=== PATIENT | female | born 1950 | race Caucasian/White ===

== ENCOUNTER → 2020-11-29 04:04 | Outpatient (CLI) | payer MEDICARE, BC, SELFPAY ==
[2020-11-29 20:12] LABS: SARS-CoV-2 RNA PCR Negative
== END ==
PROVIDERS: PCP Family Medicine; Visit Provider Specialist
DX: U07.1 COVID-19 (principal)
CPT/HCPCS: C9803; U0003; U0005

== ENCOUNTER 2020-12-02 03:07 | Day surgery (SDC) | payer MEDICARE, BC, SELFPAY ==
[2020-11-29 18:56] VITALS: BMI 31.3
[2020-12-02] VITALS (24 sets, daily range): BP systolic 83–151; BP diastolic 44–89; PULSE 57–83; RESP 12–26; TEMP 35.7–36.5; O2SAT 95–100; BMI 31.2; BMI 32.2
[2020-12-02 07:31] LABS: Basophils Absolute Auto 0.1 K/mm3 (0.0-0.1); Basophils Percent Auto 1.3 % (0.2-1.2); Eosinophils Absolute Auto 0.2 K/mm3 (0-0.3); Eosinophils Percent Auto 2.8 % (0-4.4); Hematocrit 43.9 % (37.0-47.0); Hemoglobin 15.4 g/dL (12.0-15.0); Immature Granulocyte Absolute 0.01 K/mm3 (0.00-0.031); Immature Granulocyte Percent A 0.2 % (0-0.5); Lymphocytes Absolute Auto 2.24 K/mm3 (0.9-3.2); Mean Corpuscular HGB Conc 35.1 g/dl (32-36); Mean Corpuscular Hemoglobin 32.1 pg (26-34); Mean Corpuscular Volume 91.5 fl (80-100); Mean Platelet Volume 9.6 fl (7.4-10.4); Monocytes Absolute Auto 0.6 K/mm3 (0.1-0.6); Monocytes Percent Auto 10.7 % (2.6-8.5); Neutrophils Absolute Auto 2.3 K/mm3 (1.3-6.7); Platelet Count Result 256 k/mm3 (150-375); Red Cell Distribution Width 11.7 % (11.5-14.5); White Blood Count 5.3 K/mm3 (4.5-10.0)
[2020-12-02] MEDS: SODIUM CHLORIDE 0.9% IV 500 ML 100 ML IV CONT (07:40)
[2020-12-02 07:51] LABS: Anion Gap 11 mmol/L (8-16); Blood Urea Nitrogen 10 mg/dL (7-17); Calcium 9.4 mg/dL (8.4-10.2); Carbon Dioxide 23 mmol/L (22-30); Chloride 93 mmol/L (98-107); Estimated CRCL calculation 72 ml/min; Estimated Glomerular Filt Rate > 60; Glucose 100 mg/dL (65-110); Potassium 3.9 mmol/L (3.4-5.0); Sodium 127 mmol/L (137-145)
--- NOTE | 2020-12-02 09:17 | WPDMODSED ---
Moderate Sedation Note-Pt Data Patient Data Diagnosis: Coronary disease with previous bypass grafting Exertional symptoms compatible with angina Abnormal stress test Present Complaint: Exertional chest pain Procedure to be performed/Plan: Left heart catheterization with coronary angiography and bypass graft angiography Allergies Allergy/AdvReac Type Severity Reaction Status Date / Time latex Allergy Intermediate ITCHING Verified 11/29/20 18:22 FROM POWDER IN LATEX GLOVES morphine AdvReac Intermediate DISORIENTAT Verified 11/29/20 18:22 ED Home Medications Medication Instructions Recorded Confirmed Type aspirin 81 mg tablet,delayed 81 mg PO HS 02/16/19 11/29/20 History release calcium carbonate 500 mg (1,250 1 tablet PO BID 02/16/19 11/29/20 History mg)-vitamin D3 400 unit tablet carbamazepine 200 mg 200 mg PO Q12H 02/16/19 11/29/20 History capsule,extended release [id number] multivit with 1 tablet PO DAILY 02/16/19 11/29/20 History admkyjjd-dxcb-BN-lutein 8 mg iron-400 mcg-300 mcg tablet ibuprofen 800 mg tablet 800 mg PO TID PRN 09/05/19 11/29/20 History metoprolol succinate 50 mg 50 mg PO DAILY #90 tablet 02/02/20 11/29/20 Rx tablet,extended release 24 hr atorvastatin 40 mg PO HS 11/29/20 11/29/20 History beta carotene 25,000 unit PO DAILY 11/29/20 11/29/20 History diphenhydramine HCl [Benadryl 25 mg PO BID PRN 11/29/20 11/29/20 History Allergy] multivit,tx w/iron (hematinic) 1 tablet PO DAILY 11/29/20 11/29/20 History [Senior Vitamin-B Complex-C] nitroglycerin 0.4 mg SUBLINGUAL PRN PRN 11/29/20 11/29/20 History vitamin E 400 unit PO DAILY 11/29/20 11/29/20 History Current Medications: Active Medications Sodium Chloride (Normal Saline Iv) 500 mls @ 100 mls/hr IV CONT .Q5H HAILY Sedation/Anesthesia: No previous sedation/anesthesia problems (including family history). [facility] Past Medical History Medical History (Updated 09/10/20 @ 12:08 by Shai Shaikh MD) Abnormal fasting glucose BMI 30.0-30.9,adult BMI 31.0-31.9,adult Gastro-esophageal reflux disease without esophagitis Irritable bowel syndrome with diarrhea Pain of right thumb Spider bite wound Family History Family History (Updated 08/30/18 @ 13:47 by DOCTOR UNKNOWN) Mother Family history of thyroid disease, Onset Age: 78 Family history of malignant neoplasm Father Family history of Alzheimer's disease, Onset Age: 88 Malignant neoplasm of prostate Grandparent Family history of Alzheimer's disease, Onset Age: 90 Social History Social History Smoking status: Former smoker Alcohol intake: never Substance use: never Substance use type: does not use Living arrangements: with family Additional living arrangements comments: LIVES W/ [facility] Gender identity (if verbalized by the patient): Female Spiritual care concerns: No Mod Sed Physical Exam Physical Exam Pre Procedural Exam: Normal: Appearance, Neck, Throat, Airway, Lungs, Heart Size, Heart Rate, Heart Rhythm, Neuro Exam and Extremities Hours since solid foods: 12 Hours since liquid intake: 12 Mallampati Classification: class II Internal Medicine - PN: Obj Da Vital Signs Vital Signs: Vital Signs - 24 hr 12/02/20 07:29 Temperature 36.1 C L Pulse Rate 70 Respiratory Rate 17 Blood Pressure 141/89 H Pulse Oximetry 96 Meds/Results Medications: Active Medications Generic Name Dose Route Start Last Admin Trade Name Freq PRN Reason Stop Dose Admin Sodium Chloride 500 mls @ 100 mls/hr 12/02/20 07:00 Normal Saline Iv IV CONT .Q5H HAILY Labs CBC & Chem 7: 12/02/20 07:23 12/02/20 07:23 Labs: Laboratory Results - last 24 hr 12/02/20 12/02/20 07:23 07:23 WBC 5.3 RBC 4.80 Hgb 15.4 H Hct 43.9 MCV 91.5 MCH 32.1 MCHC 35.1 RDW 11.7 Plt Count 256 MPV 9.6 I
--- NOTE | 2020-12-02 10:47 | ECG_ITS ---
Measurements Intervals [place] Rate: 64 P: 33 [place]: 182 QRS: 17 QRSD: 78 T: 48 QT: 429 QTc: 446 Interpretive Statements SINUS RHYTHM EARLY PRECORDIAL R/S TRANSITION ST-T WAVE ABNORMALITY IN ANTERIOR LEADS- CONSIDER ISCHEMIA ABNORMAL ECG Electronically Signed On 12-02-2020 12:51:57 CDT by Jeff Laird D.O.
--- NOTE | 2020-12-02 10:54 | WPDCARDPROC ---
Cardiac Cath Procedure Note Date of procedure:: 12/02/20 Performing physician:: Hussain Loyola MD Indication:: exertional angina and abnormal nuclear stress previous CABG Brief clinical history:: this is a 70-year-old woman with coronary artery disease underwent bypass grafting in 2002. She presents to the office with exertional angina which has been rather chronic. An exercise Nuclear stress test was significantly abnormal with inferolateral ischemia. In this setting follow-up angiography has been recommended. Procedure Procedure performed:: Left ventriculography coronary angiography vein graft angiography internal mammary graft angiography PCI(JESSA) to RCA saphenous vein graft Sedation/Medication given:: fentanyl 50 mg Versed 2 mg case start time 9:39 a.m. case end time 10:40 a.m. sedation provided by Phi Sparks RN, trained observer Access site:: right femoral artery Estimated blood loss:: 20 cc Procedure note:: patient was brought to the laborer pipelines in the postabsorptive state the right femoral triangle was prepared and draped in the usual fashion. Anesthesia was provided with 1% lidocaine infiltrated locally. Using the modified Seldinger technique the femoral artery was punctured and a 5 [place] vascular sheath was placed. After this left heart catheterization was carried out using a 5 [place] angled pigtail catheter to measure left-sided hemodynamics and to inject LV g in the HOANG projection. After this I used a 5 [place] FL4 catheter to inject in engage the [place] left coronary artery I then used a 5 [place] JR4 catheter to engage and inject the right coronary artery. After this the JR4 catheter was used to inject the saphenous vein graft to the circumflex. The internal mammary graft was then engaged and injected using a BALJIT catheter. Lastly the saphenous vein graft to the right coronary was engaged and injected using a 5 [place] multipurpose A1 the cineangiograms were then reviewed and PCI of the RCA graft was recommended and carried out as detailed below. Prior to PCI the patient received aspirin 3-5 mg and 600 mg of clopidogrel. She was anticoagulated with intravenous bolus and infusion of Angiomax for this PCI. The patient had the 5 [place] sheath changed over a guidewire for a 6 [place] device. The procedure was well tolerated and uncomplicated she was taken to the holding area for recovery and sheath removal. Findings:: Hemodynamics: Central aortic pressure was 142/64 left ventricle 142/5 end-diastolic of 16 there is no significant gradient on pullback across the aortic valve. Left ventricle: The LV is normal in size the base of the inferior wall is hypodynamic the remainder of the LV contracts well the global ejection fraction I would visually estimated to be 60%. The left main coronary artery is medium in caliber in the distal aspect of the left main there is about 60% stenosis prior to the bifurcation into the LAD and circumflex. The left anterior descending is a moderate caliber artery with proximal stenosis and a long tubular fashion of about 70%. Distally competitive flow can be seen from the BALJIT catheter into the midportion of the LAD. Circumflex is a medium caliber artery giving rise to the marginal branches. The circumflex has high-grade disease in its proximal segment just after the origin off the left main. This stenosis appears to be eccentric but appears in at least 2 projections to be 90%. back filling of the remnant of the saphenous vein graft to the OM can be seen on antegrade injection in the circumflex there does not appear to be any competitive flow in the vessel. The right coronary artery is medium in caliber and dominant to the posterior circulation the right coronary artery is 100% occluded in its 3rd portion. Saphenous vein graft to the circumflex is 100% occluded at its proximal anastomosis saphenous vein graft to the right coronary artery is a large caliber segme
[2020-12-02] MEDS: NITROGLYCERIN SL 0.4 MG TABLET SUBLINGUAL (11:23)
[2020-12-02] MEDS: SODIUM CHLORIDE 0.9% IV 1,000 ML 125 ML IV CONT (11:45)
--- NOTE | 2020-12-02 12:05 | SUR.PHASEII ---
Pt complained of chest pressure radiating to neck and throat on return from [facility] lab support tech. Dr Loyola aware. Given SL Nitroglycerin 0.4mg x1 with relief to a pain level of 1. BP dropped to 80/44 after recieving Nitro SL. IVF infusing. Pt voided x1 per bedpan - large amount clear light yellow urine.
--- NOTE | 2020-12-02 17:25 | SUR.PHASEII ---
Angiomax finished at 1340. Pt voiding per bedpan without difficulty. Sheath pulled with manual pressure at 1642. Manual pressure completed at 1712. Site remains clean dry and intact without signs of bleeding or hematoma.
--- NOTE | 2020-12-02 18:12 | SUR.PHASEII ---
END PHASE II RECOVERY. ADMIT TO EXTENDED RECOVERY AFTER OUTPATIENT PROCEDURE (C W/ PCI) TO CHIEF CUSTOMER OFFICER 5 (REMAINS IN CHIEF CUSTOMER OFFICER 5) AT THIS TIME UNTIL MOVED TO IMU 206 TO COMPLETE EXTENDED RECOVERY STAY. SEE PCS FOR FURTHER DOCUMENTATION.
--- NOTE | 2020-12-02 18:13 | ADMGEN ---
This patient, Kristina Walker, was admitted to EXTENDED RECOVERY POST OUTPATIENT PROCEDURE ([facility] W/ PCI) AT 1813. REMAINS IN ONLINE ACTIVIST 5 UNTIL MOVED TO IMU Room 206-. Patient/family oriented to hospital policies and general routines including ID bracelet, bed and alarms, visiting hours, pain management, procedures, bathroom and other care routines, personal items, smoking policy, room service/diet, and visiting hours. Information on how to activate the Rapid Response Team has been discussed. Patient/Family are encouraged to report perceived risks to care and to ask questions if they do not understand what they are told or what they should do. DENIES CP OR SOB. BEDREST X 6 HOURS UNTIL 2312 POST HEMOSTASIS OF R. GROIN PUNCTURE SITE.
--- NOTE | 2020-12-02 19:40 | PC.NURSE ---
REPORT CALLED TO GRACE MONTESINOS IN IMU. QUESTIONS ANSWERED. PT. IS TO TRANSFER TO IMU 206.1 VIA BED FOR COMPLETION OF EXTENDED RECOVERY AFTER C W/ PCI STAY.
--- NOTE | 2020-12-02 19:50 | PC.NURSE ---
TRANSFERRED VIA BED WITH ALL PERSONAL BELONGINGS ON TELE MONITOR TO IMU 206.1 FROM [facility] FOR EXTENDED RECOVERY STAY. UPDATES GIVEN TO GRACE MONTESINOS AT BEDSIDE. OBSERVED R. GROIN SITE WITH GRACE MONTESINOS. IVF'S CONTINUE AT 125ML/HR. NO NEW CHANGES NOTED. PT. VOICES NO C/O. NO DISTRESS NOTED.
--- NOTE | 2020-12-02 20:31 | ADMGEN ---
This patient, Kristina Walker, was admitted to IMU Room 206-01 at 2009 from the Chest pain center. Patient/family oriented to hospital policies and general routines including ID bracelet, bed and alarms, visiting hours, pain management, procedures, bathroom and other care routines, personal items, smoking policy, room service/diet, and visiting hours. Information on how to activate the Rapid Response Team has been discussed. Patient/Family are encouraged to report perceived risks to care and to ask questions if they do not understand what they are told or what they should do.
--- NOTE | 2020-12-02 20:33 | PC.NURSE ---
SARAH faxed to IMU department. Report called by YAMEL Lisa at 1940. Report given by telephone. All questions answered and plan of care reviewed. Patient to go to IMU room 206-1.
--- NOTE | 2020-12-02 20:36 | PC.NURSE ---
This patient was transferred to the IMU department room 206-1 at 2009 from the Chest pain center. Patient brought by bed. Patient oriented to room.
[2020-12-03] VITALS (11 sets, daily range): BP systolic 136–158; BP diastolic 56–66; PULSE 77–90; RESP 14–18; TEMP 36.3–37.1; O2SAT 95–98
[2020-12-03] MEDS: SODIUM CHLORIDE 0.9% IV 500 ML 100 ML IV CONT (00:40)
--- NOTE | 2020-12-03 05:11 | ECG_ITS ---
Measurements Intervals [place] Rate: 88 P: 27 MD: 168 QRS: 3 QRSD: 78 T: 27 QT: 347 QTc: 422 Interpretive Statements SINUS RHYTHM EARLY PRECORDIAL R/S TRANSITION BORDERLINE ST-T WAVE ABNORMALITY- ANTEROLAT/INF LEADS BORDERLINE ECG Electronically Signed On 12-03-2020 7:46:53 CDT by Jeff Laird D.O.
[2020-12-03] MEDS: CLOPIDOGREL BISULFATE 75 MG TABLET PO (09:38)
[2020-12-03] MEDS: ATORVASTATIN 40 MG TABLET 80 MG PO (09:38)
[2020-12-03] MEDS: ASPIRIN 81 MG CHEWABLE TABLET PO (09:38)
--- NOTE | 2020-12-03 13:09 | PM.DS ---
DS: Admitting Diagnosis Admitting Diagnosis CAD, unstable angina, abnormal stress test DS: Discharge Diagnosis Discharge Diagnosis (1) CAD (coronary artery disease): Code(s): I25.10 - Atherosclerotic heart disease of [place] coronary artery without angina pectoris Status: Acute DS: Summary Hospital Course Hospital Course: 70-year-old female who had an outpatient catheterization because of an abnormal stress test and angina. She was found to have high-grade stenosis of a vein graft to the RCA. This was successfully stented by Dr. Loyola. She also had circumflex disease which will be treated medically initially. She stated hospital overnight had no groin pain, chest pain, syncope, presyncope or other worrisome symptoms. Time Spent with Patient Time attestation: Total time spent providing and/or coordinating discharge services: Greater than 30 minutes were spent with the patient performing examination discussing discharge instructions and plan and documentation Exam Narrative: Appears stated age Const: General: no acute distress HENMT: General nose exam: Normal nares present Eyes: General: appearance normal, both eyes and all related structures Neck: Neck: supple and no JVD Resp: Auscultation: clear to auscultation bilaterally Cardio: Rate: regular rate Rhythm: regular rhythm GI: GI Palp: Yes Soft to palpation and Yes Firmness to palpation present (GI) Skin: General skin exam: normal color Other: Right groin is free of hematoma ecchymosis or bruit Neuro: General: gait normal Extrem: General: normal to inspection and no edema Psych: Mental Status: mental status grossly normal DS: Data Data Completed and Pending Completed studies during hospitalization: 1. Severe 3 vessel coronary artery disease as described above with moderate distal left main stenosis, high-grade proximal LAD lesion and high-grade proximal to ostial circumflex disease. The right coronary artery is chronically occluded. 2. Patent BALJIT graft to the LAD 3. occluded saphenous vein graft to the circumflex 4. patent but highly diseased saphenous vein graft to the RCA with sequential 95% lesions in the mid shaft of this graft resulting in TRI 2 flow in the vessel. 5. Inferobasal hypokinesia overall normal left ventricular systolic function 6. somewhat challenging but angiographically successful PCI of the saphenous vein graft to the RCA. The graft was significantly calcified but was pre-dilated and stented and then post dilated with high-pressure balloon as described above. 7. Patient will be followed clinically if she continues to have symptoms compatible with angina higher risk PCI of the distal left main into the ostium of the circumflex may be considered in another setting Procedures/Treatments: 1. Severe 3 vessel coronary artery disease as described above with moderate distal left main stenosis, high-grade proximal LAD lesion and high-grade proximal to ostial circumflex disease. The right coronary artery is chronically occluded. 2. Patent BALJIT graft to the LAD 3. occluded saphenous vein graft to the circumflex 4. patent but highly diseased saphenous vein graft to the RCA with sequential 95% lesions in the mid shaft of this graft resulting in TRI 2 flow in the vessel. 5. Inferobasal hypokinesia overall normal left ventricular systolic function 6. somewhat challenging but angiographically successful PCI of the saphenous vein graft to the RCA. The graft was significantly calcified but was pre-dilated and stented and then post dilated with high-pressure balloon as described above. 7. Patient will be followed clinically if she continues to have symptoms compatible with angina higher risk PCI of the distal left main into the ostium of the circumflex may be considered in another setting Discharge Plan Discharge Patient Disposition: Home, Self-Care Discharge Instructions: No lifting o
== END 2020-12-03 15:36 | disposition home or self-care (01) ==
LOC: ANHCATHLAB 06:59 → ANHIMU 18:52
PROVIDERS: PCP Family Medicine; Visit Provider Specialist
PROC: 4A023N7 Measurement of Cardiac Sampling and Pressure, Left Heart, Percutaneous Approach (ICD-10-PCS; CPT 93459; principal; 2020-12-02 08:30)
PROC: (CPT 92973; 2020-12-02 08:30)
PROC: (CPT 92937; 2020-12-02 08:30)
DX: I25.118 Atherosclerotic heart disease of native coronary artery with other forms of angina pectoris (principal); I65.21 Occlusion and stenosis of right carotid artery; Z95.1 Presence of aortocoronary bypass graft; R93.1 Abnormal findings on diagnostic imaging of heart and coronary circulation; I10 Essential (primary) hypertension; E78.5 Hyperlipidemia, unspecified; R56.9 Unspecified convulsions; Z79.82 Long term (current) use of aspirin; Z87.891 Personal history of nicotine dependence
CPT/HCPCS: 36415; 80048; 85025; 92973; 93005; 93459; A9270; C1725; C1757; C1769; C1874; C1887; C1894; C9604; J0461; J0583; J1644; J2250; J3010; J7030; J7040

== ENCOUNTER 2021-01-03 10:06 | Outpatient (CLI) | payer MEDICARE, BC, SELFPAY ==
[2021-01-03 10:47] LABS: Hematocrit 41.7 % (37.0-47.0); Hemoglobin 14.6 g/dL (12.0-15.0); Mean Corpuscular Hemoglobin 32.7 pg (26-34); Mean Corpuscular Volume 93.3 fl (80-100); Mean Platelet Volume 9.6 fl (7.4-10.4); Platelet Count Result 249 k/mm3 (150-375); Red Blood Count 4.47 M/mm3 (4.2-5.4); Red Cell Distribution Width 12.2 % (11.5-14.5); White Blood Count 5.5 K/mm3 (4.5-10.0)
[2021-01-03 10:50] LABS: Add Urine Microscopic? NO; Appearance Urine Clear (Clear); Bilirubin Urine Negative (Negative); Blood Urine Negative (Negative); Color Urine Yellow (Yellow); Glucose Urine UA Negative (Negative); Ketones Urine Negative (Negative); Leukocyte Esterase Ur Negative LEU/UL (NEGATIVE); Nitrate Urine Negative (Negative); Protein Urine Negative (Negative); Specific Grav Ur 1.006 (1.001-1.035); Urobilinogen Urine Negative mg/dL (<2.0)
[2021-01-03 10:58] LABS: Hemoglobin A1C 5.2 % (<5.7)
[2021-01-03 11:06] LABS: Anion Gap 12 mmol/L (8-16); Blood Urea Nitrogen 7 mg/dL (7-17); Calcium 9.5 mg/dL (8.4-10.2); Carbon Dioxide 27 mmol/L (22-30); Chloride 94 mmol/L (98-107); Cholesterol 141 mg/dL (0-200); Estimated Glomerular Filt Rate > 60; Glucose 97 mg/dL (65-110); HDL Direct 72 mg/dL; Potassium 4.1 mmol/L (3.4-5.0); Sodium 133 mmol/L (137-145); Triglycerides 99 mg/dL (<150)
[2021-01-03 11:08] LABS: Creatinine Urine 32.6 mg/dL
[2021-01-03 11:16] LABS: LDL Cholesterol Direct 51 mg/dL
[2021-01-03 12:29] LABS: Microalbumin Urine Random < 6.0 mg/L (0-16.7)
== END 2021-01-03 10:07 | disposition home or self-care (01) ==
PROVIDERS: PCP Family Medicine; Visit Provider Internal Medicine Interventional Cardiology
DX: I25.10 Atherosclerotic heart disease of native coronary artery without angina pectoris (principal); E11.65 Type 2 diabetes mellitus with hyperglycemia; E78.5 Hyperlipidemia, unspecified; I10 Essential (primary) hypertension; R53.83 Other fatigue; Z79.4 Long term (current) use of insulin; G56.03 Carpal tunnel syndrome, bilateral upper limbs
CPT/HCPCS: 36415; 80048; 80061; 81003; 82043; 83036; 84443; 85027

== ENCOUNTER 2021-06-09 15:00 | Outpatient (RCR) | payer MEDICARE, BC, SELFPAY ==
[2021-02-25 12:11] VITALS: PULSE 70
--- NOTE | 2021-03-21 10:05 | PCCPR ---
Absent due to out of town Kristina out of town 03/11/21
--- NOTE | 2021-03-21 10:06 | PCCPR ---
Absent due to cataract surgery Kristina is having cataract surgery 03/24 not ceratin her return day.
== END 2021-06-09 17:56 | disposition home or self-care (01) ==
LOC: ANHCPREHAB 15:00
PROVIDERS: PCP Family Medicine; Visit Provider Internal Medicine Cardiovascular Disease
DX: Z95.5 Presence of coronary angioplasty implant and graft (principal)
CPT/HCPCS: 93798

== ENCOUNTER 2023-07-20 19:03 | Emergency (ER) | payer MEDICARE, BC, SELFPAY ==
--- NOTE | ~2023-07-20 | XR_ITS ---
XR chest 2V 07/20/2023 19:39 Indication: Chest pain Procedure: 2 view chest Comparison: No prior studies for comparison. Findings: Shallow inspiration with crowding of the pulmonary vessels. Status post median sternotomy f or CABG. No focal air space disease, pulmonary edema, pleural effusion or suspected pneumothorax. Impression: 1: No acute cardiopulmonary disease. Reviewed, dictated and finalized at location A. Impression: 1: No acute cardiopulmonary disease.
--- NOTE | 2023-07-20 19:12 | ECG_ITS ---
Measurements Intervals [place] Rate: 89 P: -8 SD: 143 QRS: 10 QRSD: 81 T: 31 QT: 349 AVG RR 672 QTc: 395 QTcB 425 QTcF 398 Interpretive Statements SINUS RHYTHM SEPTAL MYOCARDIAL INFARCT, OF INDETERMINATE AGE[40+ms Q WAVE IN V1/V2] NONSPECIFIC ST WAVE ABNORMALITY ABNORMAL ECG SEE SCANNED COPY FOR SIGNATURE MTDD
[2023-07-20 19:13] VITALS: BP 180/83; PULSE 91; RESP 16; TEMP 36.4; O2SAT 100
[2023-07-20 19:29] LABS: Basophils Absolute Auto 0.1 K/mm3 (0.0-0.1); Basophils Percent Auto 0.9 % (0.2-1.2); Eosinophils Absolute Auto 0.2 K/mm3 (0-0.3); Eosinophils Percent Auto 2.2 % (0-4.4); Hematocrit 35.6 % (37.0-47.0); Hemoglobin 11.4 g/dL (12.0-15.0); Immature Granulocyte Absolute 0.02 K/mm3 (0.00-0.031); Immature Granulocyte Percent A 0.3 % (0-0.5); Lymphocytes Absolute Auto 2.43 K/mm3 (0.9-3.2); Lymphocytes Percent Auto 30.9 % (18.3-44.2); Mean Corpuscular Hemoglobin 27.2 pg (26-34); Mean Platelet Volume 10.8 fl (7.4-10.4); Monocytes Absolute Auto 0.8 K/mm3 (0.1-0.6); Monocytes Percent Auto 10.4 % (2.6-8.5); Neutrophils Absolute Auto 4.4 K/mm3 (1.3-6.7); Neutrophils Percent Auto 55.3 % (45.5-73.1); Platelet Count Result 254 k/mm3 (150-375); Red Blood Count 4.19 M/mm3 (4.2-5.4); White Blood Count 7.9 K/mm3 (4.5-10.0)
[2023-07-20 19:39] LABS: Alanine Aminotransferase 32 U/L (6-35); Albumin Level 4.4 g/dL (3.5-5.1); Alkaline Phosphatase 99 U/L (38-126); Anion Gap 8 mmol/L (4-12); Aspartate Amino Transferase 35 U/L (14-36); Bilirubin,Total 0.3 mg/dL (0.2-1.3); Blood Urea Nitrogen 15 mg/dL (7-17); Carbon Dioxide 24 mmol/L (22-30); Chloride 104 mmol/L (98-107); Estimated CRCL calculation 71 ml/min; Estimated Glomerular Filt Rate > 60; Glucose 101 mg/dL (65-110); Lipase 96 U/L (23-300); Potassium 3.7 mmol/L (3.4-5.0); Sodium 136 mmol/L (137-145)
[2023-07-20 19:41] LABS: Prothrombin Time 13.2 Seconds (11.1-14.7)
[2023-07-20 19:42] LABS: Partial Thromboplastin Time 31.3 Seconds (22.3-36.8)
[2023-07-20 20:00] LABS: Troponin I 0.116 ng/mL (0.000-0.034)
--- NOTE | 2023-07-20 20:31 | ED.CHESTPAIN ---
HPI - Chest Pain General Chief Complaint: Chest Pain Stated Complaint: Chest Pressure Time Seen by Provider: 07/20/23 19:18 History of Present Illness HPI narrative: patient presents with chest pressure that started this afternoon, she had a stent placed yesterday. No shortness of breath, no nausea vomiting, pain does not radiate. Related Data Home Medications Medication Instructions Recorded Confirmed aspirin 81 mg tablet,delayed 81 mg PO HS 02/16/19 05/14/23 release (Adult Aspirin Regimen) calcium carbonate 500 mg-vitamin 1 tablet PO BID 02/16/19 05/14/23 D3 10 mcg (400 unit) tablet (Calcium 500 With D) [id number]-bsxd 8 mg-folic 400 1 tablet PO DAILY 02/16/19 05/14/23 mcg-K 50 mcg-lutein 300 mcg tablet (Centrum Silver Women) beta carotene 7,500 mcg (25,000 25,000 unit PO DAILY 11/29/20 05/14/23 unit) capsule diphenhydramine HCl 25 mg tablet 25 mg PO BID PRN Allergy Symptoms 11/29/20 05/14/23 (Benadryl Allergy) B-complex with vitamin C 1 tablet PO DAILY 12/18/21 05/14/23 acetaminophen 650 mg 650 mg PO Q12H 12/18/21 05/14/23 tablet,extended release (Arthritis Pain Relief (acetaminophen) ER) metoprolol succinate 25 mg 25 mg PO DAILY 03/27/22 05/14/23 tablet,extended release 24 hr atorvastatin 40 mg tablet 40 mg PO HS 04/21/22 05/14/23 losartan 25 mg tablet 25 mg PO . q.a.m. 04/21/22 05/14/23 Allergies Allergy/AdvReac Type Severity Reaction Status Date / Time latex Allergy Intermediate ITCHING Verified 05/14/23 11:13 FROM POWDER IN LATEX GLOVES morphine AdvReac Intermediate DISORIENTAT Verified 05/14/23 11:13 ED Review of Systems Review of Systems: CONST: No fever. HEENT: No sore throat C/V: chest pressure RESP: No cough GI: No abdominal pain : No dysuria. M/S: No joint pain. SKIN: No rash. NEURO: [No headache or focal numbness or weakness] PSYCH: [No depression] PMFSH Past Medical History Medical History (Updated 07/20/23 @ 20:26 by Arlyn Hart MD) Abnormal fasting glucose Glucose 107 with hemoglobin A1c 5.4 on 10/09/2021. fasting glucose 101 with hemoglobin A1c 5.4 on 11/03/2022. At moderate risk for fall (~2021) Bilateral cataracts Treated surgically 2022. BMI 30.0-30.9,adult BMI 31.0-31.9,adult BMI 32.0-32.9,adult Chronic pain of right hip (~2020) Gastro-esophageal reflux disease without esophagitis History of blood transfusion History of bruising easily History of stress test History of wrist fracture Left Wrist 1963 Horseback riding fall Right wrist 1979 Roller skating accident Hypertension Irritable bowel syndrome with diarrhea Obesity (BMI 30.0-34.9) Pain of right thumb Seizure disorder tapered off of Tegretol May,. Seizures Spider bite wound Surgical History Surgical History History of appendectomy (~12/2001) History of back surgery (~2006) Fusion of 2nd vertebrae (Dr. Justin) History of coronary artery stent placement 1 stent 12/05/2020 (Dr. Loyola) 3 stents 01/06/2021 (Dr. Beckham) History of dental surgery wisdom teeth removed accident History of tonsillectomy (~1957) S/P triple vessel bypass (~11/12/02) Dr. Loyola Family History Family History Mother Family history of malignant neoplasm Family history of thyroid disease, Onset Age: 78 Hypertension Father Malignant neoplasm of prostate Family history of Alzheimer's disease, Onset Age: 88 Coronary artery disease Diabetes mellitus Grandparent Family history of Alzheimer's disease, Onset Age: 90 Social History Social History Smoking packs per day: 0.5 Smoking cigarettes per day: 10.0 Years smoked: 5 Smoking pack-years: 2.50 Smoking status: Former smoker Tobacco type: cigarettes Alcohol intake: never [facility]
[2023-07-20 20:56] VITALS: BP 154/80; PULSE 88; RESP 17; O2SAT 99
[2023-07-20 22:29] LABS: Troponin I 0.107 ng/mL (0.000-0.034)
--- NOTE | 2023-07-20 22:39 | ECG_ITS ---
Measurements Intervals [place] Rate: 80 P: -3 NE: 148 QRS: 4 QRSD: 76 T: 24 QT: 355 AVG RR 742 QTc: 391 QTcB 412 QTcF 392 Interpretive Statements SINUS RHYTHM SEPTAL MYOCARDIAL INFARCT, OF INDETERMINATE AGE[40+ms Q WAVE IN V1/V2] NONSPECIFIC ST WAVE ABNORMALITY ABNORMAL ECG SEE SCANNED COPY FOR SIGNATURE MTDD
[2023-07-20 23:27] VITALS: PULSE 89
[2023-07-20 23:28] VITALS: BP 168/72; PULSE 84; RESP 17; O2SAT 99
[2023-07-21] VITALS (47 sets, daily range): BP systolic 103–179; BP diastolic 60–74; PULSE 73–103; RESP 10–36; O2SAT 94–99
[2023-07-21 01:58] LABS: Troponin I 0.095 ng/mL (0.000-0.034)
--- NOTE | 2023-07-21 02:15 | PC.NURSE ---
[facility] transfer center called for status of pt bed. [facility] rep stated they believed it would be at least until morning .
--- NOTE | 2023-07-21 09:21 | PC.NURSE ---
[facility] transfer center called for updated vitals. No bed available.
--- NOTE | 2023-07-21 10:04 | PM.CNCAR ---
Assessment and Plan Assessment and plan (1) NSTEMI (non-ST elevated myocardial infarction): Code(s): I21.4 - Non-ST elevation (NSTEMI) myocardial infarction Status: Acute (2) CAD (coronary artery disease): Code(s): I25.10 - Atherosclerotic heart disease of [place] coronary artery without angina pectoris Status: Acute (3) Essential (primary) hypertension: Code(s): I10 - Essential (primary) hypertension Status: Acute (4) Mixed hyperlipidemia: Code(s): E78.2 - Mixed hyperlipidemia Status: Acute Plan She is currently chest pain free. Awaiting transfer to [facility]. Will resume her ASA, Plavix, high-intensity statin. Will increase her anti-anginal regimen -- start Imdur 60mg. Start Heparin drip. Recommendations and plan discussed with ER physician Clifford Cook MD. Patient's primary storeroom supervisor, Dr. Perdomo, also updated. History of Present Illness History of Present Illness Consult date/time: 07/21/23 10:04 Requesting physician: Arlyn Hart MD Consult reason: chest pain Reason For Visit: Chest Pressure Narrative: We are consulted for chest pain, elevated troponins. This is a pleasant 72 year old patient of Dr. Perdomo's with complex coronary artery disease. She recently underwent PCI with Dr. Beckham at [facility] on 07/19/2023. Cardiac cath report shows: 1. 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 2. Continued patency of left main into LAD and LCX bifurcation stents x 3. The absence of any significant disease allows for retrograde filling of BAIG to LAD which was not reinjected. 3. Moderate disease in large diagonal, unchanged from prior catheterization. Patient has been on ASA and Plavix, and compliant with her DAPT. Patient states she was cooking supper last night and developed sudden onset substernal heavy chest pressure. Therefore, came to ER for further evaluation. EKGs with sinus rhythm, nonspecific T wave abnormality. Troponins are 0.116, 0.107, and 0.095. Patient states her chest pain lasted all night and resolved early this morning. [facility] already contacted last night and she is currently awaiting transfer to [facility]. Review of Systems Review of Systems: All systems reviewed & are unremarkable except as noted in HPI and below (HPI) [facility] Past Medical History Medical History Abnormal fasting glucose Glucose 107 with hemoglobin A1c 5.4 on 10/09/2021. fasting glucose 101 with hemoglobin A1c 5.4 on 11/03/2022. At moderate risk for fall (~2021) Bilateral cataracts Treated surgically 2022. BMI 30.0-30.9,adult BMI 31.0-31.9,adult BMI 32.0-32.9,adult Chronic pain of right hip (~2020) Gastro-esophageal reflux disease without esophagitis History of blood transfusion History of bruising easily History of stress test History of wrist fracture Left Wrist 1963 Horseback riding fall Right wrist 1979 Roller skating accident Hypertension Irritable bowel syndrome with diarrhea Obesity (BMI 30.0-34.9) Pain of right thumb Seizure disorder tapered off of Tegretol May,. Seizures Spider bite wound Surgical History Surgical History History of appendectomy (~12/2001) History of back surgery (~2006) Fusion of 2nd vertebrae (Dr. Justin) History of coronary artery stent placement 1 stent 12/05/2020 (Dr. Loyola) 3 stents 01/06/2021 (Dr. Beckham) History of dental surgery wisdom teeth removed accident History of tonsillectomy (~1957) S/P triple vessel bypass (~11/12/02) Dr. Loyola Family History Family History Mother Family history of malignant neoplasm Family history of thyroid disease, Onset Age: 78 Hypertension Father Malignant neoplasm of prostate Family history of Alzheimer's disease, On
[2023-07-21] MEDS: CLOPIDOGREL BISULFATE 75 MG TABLET PO (10:13)
[2023-07-21] MEDS: ATORVASTATIN 40 MG TABLET 80 MG PO (10:13)
[2023-07-21] MEDS: METOPROLOL SUCCINATE EXT REL 25 MG TABCR PO (10:13)
[2023-07-21] MEDS: ISOSORBIDE MONONITRATE 60 MG TAB.ER.24H PO (10:13)
[2023-07-21] MEDS: ASPIRIN 81 MG ENTERIC TABLET PO (10:13)
[2023-07-21] MEDS: HEPARIN SODIUM 5,000 UNITS/ML VIAL 4000 UNITS IV PUSH (10:36)
[2023-07-21] MEDS: HEPARIN SOD/D5W 100 UNITS/ML 25,000 UNITS/250 ML BAG 8 UNITS IV CONT (10:37)
[2023-07-21 11:13] LABS: Basophils Absolute Auto 0.1 K/mm3 (0.0-0.1); Eosinophils Absolute Auto 0.1 K/mm3 (0-0.3); Hematocrit 35.8 % (37.0-47.0); Hemoglobin 11.3 g/dL (12.0-15.0); Immature Granulocyte Absolute 0.02 K/mm3 (0.00-0.031); Immature Granulocyte Percent A 0.3 % (0-0.5); Lymphocytes Absolute Auto 2.06 K/mm3 (0.9-3.2); Lymphocytes Percent Auto 26.9 % (18.3-44.2); Mean Corpuscular HGB Conc 31.6 g/dl (32-36); Mean Corpuscular Hemoglobin 26.8 pg (26-34); Mean Corpuscular Volume 84.8 fl (80-100); Mean Platelet Volume 10.9 fl (7.4-10.4); Monocytes Absolute Auto 0.7 K/mm3 (0.1-0.6); Monocytes Percent Auto 9.3 % (2.6-8.5); Neutrophils Absolute Auto 4.7 K/mm3 (1.3-6.7); Neutrophils Percent Auto 61.5 % (45.5-73.1); Platelet Count Result 264 k/mm3 (150-375); Red Blood Count 4.22 M/mm3 (4.2-5.4); Red Cell Distribution Width 16.1 % (11.5-14.5); White Blood Count 7.7 K/mm3 (4.5-10.0)
--- NOTE | 2023-07-21 11:27 | PC.NURSE ---
Awaiting bed at [facility] [facility]. Refuses meal at this time.
[2023-07-21 12:56] LABS: INR 1.1; Prothrombin Time 14.3 Seconds (11.1-14.7)
[2023-07-21 13:05] LABS: Partial Thromboplastin Time > 200.0 Seconds (22.3-36.8)
--- NOTE | 2023-07-21 15:13 | PC.NURSE ---
To [facility] via [facility]. Condition stable.
== END 2023-07-21 15:13 | disposition short-term general hospital (02) ==
PROVIDERS: Internal Medicine; Emergency Provider Emergency Medicine; PCP Family Medicine
DX: I21.4 Non-ST elevation (NSTEMI) myocardial infarction (principal); I25.10 Atherosclerotic heart disease of native coronary artery without angina pectoris; I10 Essential (primary) hypertension; E78.2 Mixed hyperlipidemia; E66.9 Obesity, unspecified; Z68.33 Body mass index [BMI] 33.0-33.9, adult; K21.9 Gastro-esophageal reflux disease without esophagitis; K58.0 Irritable bowel syndrome with diarrhea; Z95.5 Presence of coronary angioplasty implant and graft; Z95.1 Presence of aortocoronary bypass graft; Z98.1 Arthrodesis status; Z98.42 Cataract extraction status, left eye; Z98.41 Cataract extraction status, right eye; Z87.891 Personal history of nicotine dependence; Z79.82 Long term (current) use of aspirin; Z79.02 Long term (current) use of antithrombotics/antiplatelets
CPT/HCPCS: 36415; 71046; 80053; 83690; 84484; 85025; 85610; 85730; 93005; 96365; 96366; 99285; A9270; J1644

== ENCOUNTER 2025-01-11 13:12 | Outpatient (CLI) | payer MEDICARE, BC, SELFPAY ==
--- OUTSIDE RECORDS SUMMARY | 2000-02-23 11:30 | XMS_ITS | Continuity of Care Document ---
Author Organization [facility] Address [id number] [place] [address] [address] [place] [address] Phone Care Team Providers Care Golf Course Assistant Name Role Phone Liya Cabrera Unavailable Unavailable Advance Directives Directive Yes / No Effective Date File Name No Information Encounters Encounter Description Practice Location Reason(s) For Visit Diagnoses Date Provider Providers Copied on Encounter [facility], [id number] [place] [address] [address], [place], [place], [id number], [place] tel:[phone] [facility] (formerly [facility]) No Information [address] Nickerson. [address] , [address], [place], [address], [place]. tel:[phone] Family History Family Member Type Diagnosis Age At Onset No Information Payers Payer name Insurance type Covered green party ID Authoriza tion(s) No Information Social History Type Description Quantity Date Captured Comments Sex Female Smoking Status No Information Chief Complaint And Reason For Visit No Information Reason For Referral Reason For Referral No Information History Of Present Illness Encounter Date Complaint History Of Prese nt Illness No Information Functional Status Date Functional Assessmen t No Information Instructions Date Instruction Additional Infor mation No Information Assessments Type Assessment Date No Information Patient Care Teams Name Effective Dates (start - stop) Status Members No Information
--- OUTSIDE RECORDS SUMMARY | 2024-04-13 08:00 | XMS_ITS | Continuity of Care Document ---
Author Organization [facility] Address [address] [place] [address] Phone Care Team Providers Care Teacher Name Role Phone Kirk UZMA MEDINA Velasquez Unavailable Unavailab le Allergies, Adverse Reactions, Alerts Substance Reaction Status Criticality No Known Allergies Active No Inform ation Medications Medication Instructions Dosage Effective Dates (start - stop) Status Comments CLOPIDOGREL (unknown strength) Not Available - Active ARTHRITIS PAIN RELIEVER (unknown strength) Not Available - Active ATORVASTATIN CALCIUM (unknown strength) Not Available - Active BETA CAROTENE (unknown strength) Not Available - Active CALCIUM 500-VIT D3 (unknown strength) Not Available - Active METOPROLOL TARTRATE (unknown strength) Not Available - Active MULTIVITAMINS (unknown strength) Not Available - Active B COMPLEX (unknown strength) Not Available - Active Procedures Procedure Date X-ray Exam Hip Unilat With Pelvis When P erf 2-3 View BMI Documented Above Normal Limit F/U Pl an Doc Global/Postop followup visit Total Hip Replacement Patients with documented shared decision -making Patients who are evaluated for venous th romboembol X-ray Exam Hip Unilat With Pelvis When P erf 2-3 View BMI Documented Above Normal Limit F/U Pl an Doc Office/outpatient visit,est, mod 2023 X-ray Exam Hip Unilat With Pelvis When P erf 2-3 View Office/outpatient visit,new, mod 2022 Advance Directives Directive Yes / No Effective Date File Name No Information Encounters Encounter Description Practice Location Reason(s) For Visit Diagnoses Date Provider Providers Copied on Encounter [facility], [address] [address], [place], [place], [id number], [place] tel:[phone] [facility] Follow Up of right DA total hip arthroplasty (chief complaint) Pain in right hipPresence of right artificial hip joint 5 Yelena Eng. [address] [address], [place], [place], [id number] , [place]. tel:[phone] Referring Provider: Velasquez Jaeger, [address] [address], [place], [address]. tel:[phone] [facility], [address] [address], [place], [place], [id number], [place] tel:[phone] [facility] No Information 4 Jesús Ruggiero er. [address] [address], [place], [place], [id number] , [place]. tel:[phone] Referring Provider: Kobi Barrow, [address] [address], [place], [address]. tel:[phone] Office/outpa tient visit,est, mod [facility], [address] [facility] [address], [place], [place], [id number], [place] tel:[phone] [facility] right hip (chief complaint) Pain in right hipUnilatera l primary osteoarthrit is, right hip 4 Jesús Ruggiero er. [address] [facility] [facility] [address], [place], [place], [id number] , [place]. tel:[phone] Referring Provider: Kobi Barrow, [address] [address], [place], [address]. tel:[phone] [facility], [address], [id number], [place] [phone] [facility] Unilateral primary osteoarthrit is, right hip 4 Jesús Ruggiero er. [address] [facility], [address], [id number] , [place]. tel: [phone] Office/outpa tient visit,new, [facility], [address] [facility] [address], [place], [place], [id number], [place] tel:[phone] [facility] right hip (chief complaint) Pain in right hipUnilatera l primary osteoarthrit is, right hip 3 Jesús Ruggiero er. [address] [place] [address], [address], [id number] , [place]. tel: [phone] Referring Provider: Kobi Barrow, [address] [place] [address], [place], [address]. tel:[phone] Family History Family Member Type Diagnosis Age At Onset Sister Problem (finding) Osteoarthritis Father Problem (finding) Osteoarthritis Father Problem (finding) Cancer, unknown Mother Problem (finding) Hypertension Mother Problem (finding) Cancer, unknown Mother Problem (finding) Osteoarthritis Brother Problem (finding) Heart Disease Father Problem (finding) Heart Disease Immunizations Vaccine Date Status Comments influenza, injectable, quadrivalent, (3 years or older) administered Note: patient denies ; Source: Source Unspecified Payers Payer name Insurance type Covered republican ID Authoriza tion(s) [place] Part B MB [id number] [facility] [id number] Social History Type Description Quantity Date Captured Comments Alcohol Use Details Unknown Caffeine Use Details Unknown Tobacco Use Status No Information Smoking Status No Information Non-Smoking Tobacco Use Details : No Details Available : No Details Available Sex Female Vital Signs Date / Time: Height Weight BMI Pulse Rate Blood Pressure Temperature Respiratory Rate Body Surface Area Head Circumference Head Circ. Percentile Wt./Kenn. Percentile BMI percentile Pulse Ox Inhaled Ox 1:15 PM 62.00 in 77.111 kg (170.00 lbs) 31.0 9 kg/m ashkan (2) Chief Complaint And Reason For Visit From encounter dated '04/13/2024 13:00'. Follow Up of right DA total hip arthroplasty (chief complaint). Description: Kristina presents today for initial post operative evaluation of her right direct anterior total hip arthroplasty, date of surgery 03/30/2024. Denies injury, trauma or fall since surgical intervention. Denies fever, chills, generalized feelings of illness or malaise. Indicates compliance with the use of aspirin for DVT prophylaxis, and maintaining anterior hip precautions. She has not started therapy yet due to illness, but has been doing the exercises at home. Endorses pain, predominantly located along the incision that it mild and intermittent. The pain is worsened with increases to activity and well-managed with the use of acetaminophen and meloxicam. She states she is utilizing depends due to concerns for possible incontinence issues. She is ambulating without assistive device. Reason For Referral Reason For Referral No Information Plan Of Treatment Date Type Action Status Referral Ordered: X-ray Exam Hip Unilat With Pelvis When Perf 2-3 View RT hip ordered History Of Present Illness Encounter Date Complaint History Of Prese nt Illness Follow Up of right D A total hip arthroplasty Kristina presents today for initial post operative evaluation of her right direct anterior total hip arthroplasty, date of surgery 03/30/2024. Denies injury, trauma or fall since surgical intervention. Denies fever, chills, generalized feelings of illness or malaise. Indicates compliance with the use of aspirin for DVT prophylaxis, and maintaining anterior hip precautions. She has not started therapy yet due to illness, but has been doing the exercises at home. Endorses pain, predominantly located along the incision that it mild and intermittent. The pain is worsened with increases to activity and well-managed with the use of acetaminophen and meloxicam. She states she is utilizing depends due to concerns for possible incontinence issues. She is ambulating without assistive device. right hip Kristina is a 73 y ear-old female who presents to the office for evaluation of right hip pain. 170 pounds. limping with a cane. had previously been scheduled for hip arthroplasty had to postponed due to cardiac stenting. had her cardiac stents placed about 6 months ago and is doing well. she has also had history of open heart surgery. now wishes to discuss right hip arthroplasty severe pain that is functionally limiting she has difficulty ambulating greater than several blocks. she has had previous lumbar spine surgery with plates and screws placed posteriorly from L4-L5 and S1. she has severe groin pain. pain is functionally limiting pain is worse with flexion and rotation difficulty ambulating without her cane. The patient has failed conservative management regarding their osteoarthritis. They have received appropriate conservative treatment for greater than 6 months consisting of injections, anti-inflammatories, activity modification, physical therapy, utilization of appropriate medications. The patient continues to have functionally limiting pain that restricts their ability to walk, climb stairs, descending stairs and perform exercise and activities of daily living. At this time the patient wishes to proceed with total joint arthroplasty to improve function and decrease pain after failing conservative treatments. right hip Kristina is a 72 y ear-old female who presents to the office for evaluation of right hip pain. She is 5 foot 2,178 pounds. She has limited mobility in severe pain in her right hip. Pain is rated as an 8 out of 10 it is aching, constant, dull and sharp. She is experiencing decreased motion, limping, stiffness, swelling, spasming, weakness and tingling. Pain is worse with bending, climbing stairs, descending stairs, lifting, sitting, standing and walking. Pain is better with heat, ice, massage, stretching, prescription medication and idra-ljr-grqohki medications. Treatments have included anti-inflammatories bracing chiropractic pain medication and x-rays. She has a history of blood transfusions heart trouble osteoarthritis and seizures with epilepsy. Patient endorses pain located in the groin, pain radiates down the anterior side of the thigh. The pain is exacerbated with flexion and internal rotation. Patient has difficulty flexing the knee, putting on shoes and socks, and elevating the leg to perform activities. There is limping with ambulation.The patient has completed adequate conservative therapy consisting of: Tylenol, anti-inflammatories, physical therapy, activity modification, and injections. Currently conservative treatment is no longer providing adequate symptom management and the patient wishes to progress to total joint arthroplasty. Symptoms have been present for greater than 6 months, pain is rated as an 8 out of 10 and is functionally limiting. The patient is no longer able to perform activities of daily living such as climbing hills and ramps, a sending and descending stairs, walking greater than 1-2 city blocks without significant pain. Patient is taking Plavix she is a former smoker. Arthroplasty would be performed in the hospital given her risk factors Functional Status Date Functional Assessmen t No Information Instructions Date Instruction Additional Infor nita 1) Continue DVT prop hylaxis until 6 weeks postop.2) Maintain anterior hip precautions until 8 weeks post op.3) Continue physical therapy.4) Avoid submergence of incision site in standing water until at least 8 weeks postop. Avoid irritation to the surgical incision with clothing.5) Continue pain control measures with rest, ice, elevation, over the counter oral analgesics, prescription analgesics and NSAIDs. 6) Continue the use of compression stockings for edema control as needed. 7) Avoid dental care until three months postop unless emergent, utilize an antibiotic prior to all dental visits for 2 years, and notify the office of need.8) She will discontinue the use of depends as they are not necessary, and will transition to undergarments that do not cause stress or strain along the surgical incision. A considerable amount of time was spent counseling the patient on increased infection risk with saturated undergarments and the presence of surgical incision.All question were answered and concerns addressed. demonstrates appropriate understanding of the diagnosis and the plan of care at this time and will follow up in 8 weeks.Dictation completed with [employer] Practice Edition software, grammatical variances and spelling errors may inadvertently occur. Related to Presence of right artificial hip joint We discussed in deta il the specifics of the operation consisting of the pre-operative evaluation, the surgical procedure, and the post operative recovery course. I explained the prosthetic ( ceramic on polyethylene bearing). We discussed the risks and benefits. Specifically, bleeding, possible blood transfusion, DVT, PE, dislocation, infection, persistent pain, mechanical loosening, leg length discrepancy, fracture, possible damage to nerves and arteries.. We also obtained templating radiographs to size the components and measure the pre-operative leg lengths. We discussed the hospital stay vs outpatient total joint procedure and the recovery period. Including, post op PT and DVT prophylaxis. Appropriate medical evaluation will be obtained and the patient will be scheduled for total hip arthroplasty. We discussed the unique risks to anterior hip surgery. The patient understands them and was given a handout indicating the difference between the posterior and anterior approach. Unique risks include: increased risk of femoral loosening, femoral fracture, lateral femoral cutaneous nerve palsy or neuropathy, delayed wound healing.[facility] anterior approach due to lumbar spinal fusion aspirin for DVT prophylaxis will need cardiology clearance due to recent stenting Related to Unilateral primary osteoarthritis, right hip We discussed in deta il the specifics of the operation consisting of the pre-operative evaluation, the surgical procedure, and the post operative recovery course. I explained the prosthetic ( ceramic on polyethylene bearing). We discussed the risks and benefits. Specifically, bleeding, possible blood transfusion, DVT, PE, dislocation, infection, persistent pain, mechanical loosening, leg length discrepancy. We also obtained templating radiographs to size the components and measure the pre-operative leg lengths. We discussed the hospital stay vs outpatient total joint procedure and the recovery period. Including, post op PT and DVT prophylaxis. Appropriate medical evaluation will be obtained and the patient will be scheduled for total hip arthroplasty. We discussed the unique risks to anterior hip surgery. The patient understands them and was given a handout indicating the difference between the posterior and anterior approach. Unique risks include: increased risk of femoral loosening, femoral fracture, lateral femoral cutaneous nerve palsy or neuropathy, delayed wound healing.Discussed with the patient that patients who have previous spinal fusions have increased risk of hip dislocation I would prefer an anterior approach to mitigate risk of dislocation would be performed at [facility]. Related to Unilateral primary osteoarthritis, right hip Assessments Type Assessment Date assessment Pain in right hip assessment Presence of right artificial hip joint impression Right direct anterio r total hip arthroplasty, date of surgery 03/30/2024No suspicion of mechanical loosening or septic joint Patient Care Teams Name Effective Dates (start - stop) Status Members No Information
--- OUTSIDE RECORDS SUMMARY | 2025-01-11 13:17 | XMS_ITS | Clinical Summary ---
Author Organization [facility] [address] Address [address] [place] [address] Care Team Providers Care Car Tracer Name Role Phone Shai Shaikh MD Primary Care Provider [phone] Isiah Perdomo MD Unavailable Kobi Espinosa MD Unavailable Allergies Active Allergy Reactions Criticality Noted Date Comments Adhesive Itching,Redness Low 05/17/2023 Latex Rash Medium 05/23/2023 Morphine Other (See comments),Hallucination s Medium 05/23/2023 Nightmares, ineffective Medications wommqypz-umi-CR- lycopen-lutein 0.4-300-250 mg-mcg-mcg tabletIndication s:Vitamin Deficiency Prevention Take 1 tablet by mouth every morning Active vitamin B complex capsule Take 1 capsule by mouth every morning Active BETA CAROTENE ORAL Take 1 tablet by mouth every morning Active calcium carbonate-vitami n D3 1,250mg (500mg elemental) - 5 mcg (200 units) per tablet Take 1 tablet by mouth 2 (two) times a day with meals Active diphenhydramine HCl (WAL-DRYL ALLERGY ORAL) Take 1 tablet by mouth as needed Active cyclobenzaprine (FLEXERIL) 7.5 mg tablet Take 1 tablet (7.5 mg total) by mouth 3 (three) times a day as needed for muscle spasms 03/23/20 23 Active atorvastatin (LIPITOR) 80 mg tablet Take 1 tablet (80 mg total) by mouth nightly Active meloxicam (MOBIC) 15 mg tablet Take 1 tablet (15 mg total) by mouth daily 30 tablet 03/31/20 24 025 Active Additional Information Patient not taking.Reported on 12/26/2024 aspirin 81 mg enteric coated tabletIndication s:Deep Vein Thrombosis Prevention Take 1 tablet (81 mg total) by mouth 2 (two) times a day 0 03/31/20 24 Active docusate sodium (COLACE) 100 mg capsuleIndicatio ns:constipation Take 1 capsule (100 mg total) by mouth 2 (two) times a day 60 capsule 03/31/20 24 Active Additional Information Patient not taking.Reported on 12/26/2024 metoprolol XL (TOPROL-XL) 25 mg extended release tablet TAKE 1 TABLET(25 MG) BY MOUTH DAILY 90 tablet 2 08/09/19 25 Active losartan (COZAAR) 25 mg tabletIndication s:Coronary artery disease involving [place] coronary artery of [place] heart without angina pectoris,Primary hypertension Take 1 tablet (25 mg total) by mouth daily 90 tablet 3 12/27/19 25 026 Active clopidogreL (PLAVIX) 75 mg tablet Take 1 tablet (75 mg total) by mouth daily 90 tablet 12/29/19 25 Active nitroglycerin (NITROSTAT) 0.[address] 1 tablet (0.4 mg total) under the tongue every 5 (five) minutes as needed for chest pain May repeat dose q 5 min, up to 3 doses total 25 tablet 3 12/29/19 25 026 Active nitroglycerin (NITROSTAT) 0.[address] 1 tablet (0.4 mg total) under the tongue every 5 (five) minutes as needed for chest pain May repeat dose q 5 min, up to 3 doses total 25 tablet 11 11/27/19 21 025 Discontin ued(Reord er) clopidogreL (PLAVIX) 75 mg tablet TAKE 1 TABLET(75 MG) BY MOUTH DAILY 90 tablet 09/07/19 25 025 Discontin ued(Reord er) Active Problems Problem Noted Date Diagnosed Date Hyperlipidemia LDL goal <70 11/02/2023 Presence of stent of bypass graft 08/12/2023 Presence of stent in coronary artery 08/12/2023 Chest pain 07/21/2023 Seizures 05/23/2023 CHF (congestive heart failure) 05/23/2023 GERD (gastroesophageal reflux disease) Asthma 05/23/2023 Osteoarthritis of right hip 05/23/2023 Obesity (BMI 30.0-34.9) 05/23/2023 Primary osteoarthritis of right hip 03/26/2023 Hypertension 11/26/2020 Hyperlipidemia 11/26/2020 Coronary artery disease 11/26/2020 History of seizures 11/26/2020 Delayed emergence from anesthesia Resolved Problems Problem Noted Date Diagnosed Date Resolved Date Other forms of angina pectoris 11/26/2020 01/29/2021 Encounters Date Type Department Care Team Description 12/28/2024 Telephone [facility] Medical [facility] Cardiology [address] [place] [phone] Isiah Perdomo MD Med Refill 12/26/2024 1:30 PM CDT Office Visit [facility] Cardiology [address] [place] [phone] Isiah Perdomo MD Hyperlipidemia LDL goal <70 (Primary Dx); Coronary artery disease involving [place] coronary artery of [place] heart without angina pectoris; Primary hypertension; Mixed hyperlipidemia from Last 3 Months Surgical History Surgery Date Site/Laterality Comments CORONARY ANGIOPLASTY CARDIAC CATHETERIZATION CORONARY STENT PLACEMENT TONSILLECTOMY TUBAL LIGATION APPENDECTOMY CORONARY ARTERY BYPASS GRAFT 2002 CATARACT EXTRACTION 01/10/2023 - 02/09/2023 Bilateral Medical History Medical History Date Comments Hypertension Hyperlipidemia Seizures (HCC) CHF (congestive heart failure) (HCC) Coronary artery disease GERD (gastroesophageal reflux disease) Asthma Osteoarthritis of right hip Delayed emergence from anesthesia Family History Medical History Relation Name Comments Diabetes Father Cancer Mother Relation Name Status Comments Father (Age 89) Mother (Age 77) Social History Tobacco Use Types Packs/Day Years Used Date Smoking Tobacco: Former Cigarettes Q uit: 1999 Smokeless Tobacco: Never Tobacco Cessation:Counseling Given: Not Answered [facility] Utilities Answer Date Recorded In the past 12 months has e Candid io, gas, oil, or water iClinical threatened to shut off services in your home? No 07/26/2023 Social Connection and Isolation Panel Answer Date Recorded In a typical week, how many times do you talk on the phone with family, friends, or neighbors? More than three times a week 07/26/2023 How often do you get togethe r with friends or relatives? Three times a week 07/26/2023 How often do you attend chur ch or adventism services? More than 4 times per year 07/26/2023 Do you belong to any clubs o r organizations such as catholic groups, unions, fraternal or athletic groups, or school groups? No 07/26/2023 How often do you attend meet ings of the clubs or organizations you belong to? Never 07/26/2023 Are you , , di vorced, , never , or living with a partner? 07/26/2023 AUDIT-C Answer Date Recorded Q1: How often do you have a drink containing alcohol? Never 03/13/2024 Q2: How many drinks containi ng alcohol do you have on a typical day when you are drinking? Patient does not drink Q3: How often do you have si x or more drinks on one occasion? Never 03/13/2024 Overall Financial Resource Strain (CARDIA) Answe r Date Recorded How hard is it for you to pa y for the very basics like food, housing, medical care, and heating? Not hard at all 07/26/2023 Hunger Vital Sign Answer Date Recorded Within the past 12 months, y ou worried that your food would run out before you got the money to buy more. Never true 07/26/19 24 Within the past 12 months, t he food you bought just didn't last and you didn't have money to get more. Never true 07/26/2023 PRAPARE - Transportation Answer Date Re corded In the past 12 months, has l ack of transportation kept you from medical appointments or from getting medications? No 07/11 In the past 12 months, has l ack of transportation kept you from meetings, work, or from getting things needed for daily living? No 07/26/2023 Housing Stability Vital Sign Answer James e Recorded In the last 12 months, was t here a time when you were not able to pay the mortgage or rent on time? No 07/26/2023 In the last 12 months, how many places have you lived? 1 07/26/2023 In the last 12 months, was t here a time when you did not have a steady place to sleep or slept in a assisted (including now)? No 07/26/2023 Personal Safety Answer Date Recorded Have you ever been in or are you currently in a harmful physical or emotional relationship or is someone making you feel afraid or unsafe? 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 Gender Identity Not on file Sexual Orientation Not on file Obstetrics History Last Filed Vital Signs Vital Sign Reading Time Taken Comments Blood Pressure 152/70 12/26/2024 1:32 PM CDT Pulse 87 12/26/2024 1:32 PM CDT Temperature 36.5 C (97.7 F) 03/31/2024 8:36 AM HOME THERAPY TEACHER Respiratory Rate 16 03/31/2024 8:36 AM HOME THERAPY TEACHER Oxygen Saturation 97% 12/26/2024 1:32 PM CDT Inhaled Oxygen Concentration - - Weight 74.7 kg (164 lb 9.6 oz) 12/26/2024 1:32 P M CDT Height 157.5 cm (5' 2) 12/26/2024 1:32 PM CDT Body Mass Index 30.11 12/26/2024 1:32 PM CDT Plan of Treatment Health Maintenance Due Date Last Done Comments Colon Cancer Screening-Colonoscopy 1950 Depression Screening 1949 Hepatitis C Screening 1949 Osteoporosis Screening-Bone Density Scan 1949 DTaP/Tdap/Td Vaccine (1 - Tdap) 1960 Hepatitis B Screening 10/05/1967 Pneumococcal vaccine 65+ (1 of 2 - PCV) 1968 Zoster Vaccine (1 of 2) 10/05/1999 Well Visit 65+ 2014 Influenza Vaccine (#1) 2024 Fall Risk Assessment 03/31/2025 03/31/2024 Medical Devices Implanted Type Area Thread Roller Device Identifier Shelf Expiration Date Model / Serial / Lot [employer]Hack.It Callie Angio-Seal Vip 6fr Closere Device [id number] - [id number] - [id number] Implanted:Qty: 1 on 07/23/2023 by Chaz Meyer MD at [facility] Collagen Right: Femoral [employer] Callie 01/11/2024 [id number] / [id number] / [id number] Medtronic U[employer] X [id number] Resolute Terry 3mm 2.1-2.7fr 22mm 140cm Rapid Exchange Radiopaque - [id number] - [id number] Implanted:Qty: 1 on 01/06/2021 by Liborio Beckham MD PhD at [facility] Stent Medtronic Inc 10/06/2023 [id number] / [id number] / [id number] 2000 Medtronic [employer] X [id number] Resolute Terry 2.5mm 2.1-2.7fr 15mm 140cm Rapid Exchange - [id number] - [id number] Implanted:Qty: 1 on 01/06/2021 by Liborio Beckham MD PhD at [facility] Stent Medtronic Inc 10/09/2023 [id number] / [id number] / [id number] Medtronic [employer] X [id number] Resolute [place] 4mm 2.1-2.7fr 8mm 140cm Rapid Exchange Radiopaque 1 - [id number] - [id number] Implanted:Qty: 1 on 01/06/2021 by Liborio Beckham MD PhD at [facility] Stent Medtronic Inc 05/29/2022 [id number] UX / [id number] / [id number] Medtronic Card Vasc Surgery 3.5 X 26mm Terry Escalante Rx Coronary Stent [id number] - [id number] - [id number] Implanted:Qty: 1 on 07/19/2023 by Liborio Beckham MD PhD at [facility] Stent N/A: Saphenous Vein Graft Medtronic Card Vasc Surgery 03/24/2026 [id number] / [id number] / [id number] Description:SVG to RCA Medtronic Card Vasc Surgery 2.50 X 15mm Terry Escalante Rx Coronary Stent [id number] - [id number] - [id number] Implanted:Qty: 1 on 07/23/2023 by Liborio Beckham MD PhD at [facility] Stent N/A: Diagnonal Coronary Artery Medtronic Card [facility] 04/23/2026 [id number] 5UX / [id number] 2000 / [id number] 2000 Medtronic Card [facility] 2.25 X 15mm Terry Escalante Rx Coronary Stent [id number] - [id number] - [id number] Implanted:Qty: 1 on 07/23/2023 by Liborio Beckham MD PhD at [facility] Stent Left: Anterior Descending Cornary Artery Medtronic Card [facility] 05/27/2026 [id number] / [id number] 2000 [id number] 2000 Ter[employer]o Medical Callie Angio-Seal Vip 6fr Closere Device [id number] - [id number] - [id number] Implanted:Qty: 1 on 07/19/2023 by Liborio Beckham MD PhD at [facility] Vascular Closure Device Right: Common Femoral Artery [employer] Callie 01/11/2024 [id number] / [id number] / [id number] Daig Callie/[employer] [id number] Angio-Seal Evolution 8fr .038in Guidewire Bypass Tube Suture - [id number] - [id number] Implanted:Qty: 1 on 01/06/2021 by Liborio Beckham MD PhD at [facility] [employer] Clalie 07/10/2021 [id number] / [id number] / [id number] [employer] Screw Bone Trident Ii L25mm Od6.5mm Low Profile Hexagonal Sterile 2066-9121 - [id number] Implanted:Qty: 1 on 03/30/2024 by Kobi Espinosa MD at [facility] Right: Hip [employer] [id number] 01/24/2029 6249-3314 / / [id number] [employer] Shell Acetabular Trident Ii Tritanium D Od50mm Hip 3 Screw Hole Cluster Sterile 702-04-50d - [id number] Implanted:Qty: 1 on 03/30/2024 by Kobi Espinosa MD at [facility] Right: Hip [employer] [id number] 12/20/2028 702-04-50D / / [id number] [employer] Screw Bone Trident Ii L30mm Od6.5mm Low Profile Hexagonal Sterile 8667-5920 - [id number] Implanted:Qty: 1 on 03/30/2024 by Kobi Espinosa MD at [facility] Right: Hip [employer] [id number] 01/11/2029 1361-4202 / / [id number] Depuy Orthopaedics Inc Articul/Apollo 36mm Cementless Hip +5mm 03/25 [place] Femoral Latex Free [id number] - [id number] Implanted:Qty: 1 on 03/30/2024 by Kobi Espinosa MD at [facility] Right: Hip [employer]ed[employer] Inc [id number] 10/09/2028 [id number] / / [id number] Depuy Orthopaedics Inc Actis Collared Hip 03/25 3 Standard Offset Stem Femoral [id number] - [id number] Implanted:Qty: 1 on 03/30/2024 by Kobi Espinosa MD at [facility] Right: Hip [employer] Inc [id number] 02/09/2034 [id number] / / [id number] [employer] Screw Bone Trident Ii L30mm Od6.5mm Low Profile Hexagonal Sterile 2032-5891 - [id number] Implanted:Qty: 1 on 03/30/2024 by Kobi Espinosa MD at [facility] Right: Hip [employer] [id number] 11/24/2028 1350-0508 / / [id number] [employer] Insert Trident 0deg 36mm 723--36d - [id number] Implanted:Qty: 1 on 03/30/2024 by Kobi Espinosa MD at [facility] Right: Hip [employer] [id number] 12/18/2028 72300-36D / / [id number] Insurance MEDICARE [facility] FED[facility] Member Subscriber Plan / Payer ( fective 2015-Present) Name:Kristina Walker Relation to Subscriber:Spouse Name:AARONDOUGLAS Dang Date of :1947 (Home) Address: [address] [place] [address] Payer ID:[id number] (NAIC) Group ID:[id number] Type:[facility] Address: [address] [place] [address] MEDICARE [facility] [employer] Member Subscriber Plan / Payer (Ef fective 2015-Present) Name:AaronKristina Tiffanie Relation to Subscriber:Spouse Name:DOUGLAS WALKER Date of :1947 (Home) Address: [address] [place] [address] Payer ID:[id number] (NAIC) Group ID:[id number] Type:[employer] Address: [address] [place] [address] MEDICARE [facility] Advance Directives For more information, please contact: [phone] * Full Code (Latest Code Status on File) Date Activated Date Inactivated Comments 03/30/2024 11:43 AM 03/31/2024 5:56 PM * Full Code Date Activated Date Inactivated Comments 07/21/2023 3:59 PM 07/24/2023 4:16 PM * Full Code Date Activated Date Inactivated Comments 07/19/2023 10:32 AM 07/19/2023 8:12 PM * Full Code Date Activated Date Inactivated Comments 01/06/2021 5:44 PM 01/07/2021 12:50 AM Care Teams Car Tracer Relationship Specialty Start Date End Date Shai Shaikh MD [address] [address] PCP - General Family Medicine 09/11/20 Isiah Perdomo MD [address] [facility] [address] [facility], [facility] [address] [place] [address] Consulting Physician Cardiology 05/17/23 Kobi Espinosa MD [address] [facility] [address] [place] [address] Consulting Physician Orthopedic Surgery 03/31/24
--- OUTSIDE RECORDS SUMMARY | 2025-01-11 13:17 | XMS_ITS | Encounter Summary ---
Author Organization [facility] Address [address] [place] [address] Phone Care Team Providers Care Shop Helper Name Role Phone Shai Shaikh MD Primary Care Provider + [phone] Isiah Perdomo MD Unavailable [phone] Kathleen Hay RN Unavailable [phone] Kobi Espinosa MD Unavailable [phone] Encounter Details Date Type Department Care Team (Latest Contact Info) Description 12/02/2020 Orders Only [facility] Scanning, Provider Social History Tobacco Use Types Packs/Day Years Used Date Smoking Tobacco: Former Cigarettes Q uit: 11/26/1974 AUDIT-C Answer Date Recorded Q1: How often do you have a drink containing alc ohol? 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 difficile suspected 07/23/2023 07/23/202307/24 3:05 AM CDT documented as of this encounter Care Teams Shop Helper Relationship Specialty Start Date End Date Shai Shaikh MD [address] [address] PCP - General Family Medicine 09/11/20 Isiah Perdomo MD [address] [facility] C [facility] [address] [facility] [address] [place] [address] Consulting Physician Cardiology 05/17/23 Kathleen Hay, RN [address] [facility] [address] [place] [address] SHOP Outpatient Wood Bucker 07/26/23 08/22/23 Kobi Espinosa MD [address] [facility] [address] [place] [address] Consulting Physician Orthopedic Surgery 03/31/24 documented as of this encounter
[2025-01-11 14:27] LABS: Anion Gap 8 mmol/L (4-12); Blood Urea Nitrogen 13 mg/dL (7-17); Calcium 8.9 mg/dL (8.4-10.2); Carbon Dioxide 25 mmol/L (22-30); Chloride 102 mmol/L (98-107); Estimated Glomerular Filt Rate > 60; Glucose 99 mg/dL (65-110); Potassium 3.9 mmol/L (3.4-5.0); Sodium 135 mmol/L (137-145)
== END 2025-01-11 13:13 | disposition home or self-care (01) ==
LOC: ANHLAB 13:15
PROVIDERS: PCP Family Medicine; Visit Provider Internal Medicine Cardiovascular Disease
DX: I10 Essential (primary) hypertension (principal)
CPT/HCPCS: 36415; 80048

== ENCOUNTER 2025-02-12 08:32 | Outpatient (CLI) | payer MEDICARE, BC, SELFPAY ==
--- OUTSIDE RECORDS SUMMARY | 2025-02-12 08:46 | XMS_ITS | Encounter Summary ---
Author Organization 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 Gender Identity Not on file Sexual Orientation [...] documented as of this encounter Care Teams Mgmt Consultant Relationship Specialty Start Date End Date Shai Shaikh MD [address] [address] PCP - General Family Medicine 09/11/20 Isiah Perdomo MD [address] [facility] C [facility] [address] [facility], [facility] [address] [place] [address] Consulting Physician Cardiology 05/17/23 Kathleen Hay, RN [address] [facility] [address] [place] [address] SHOP Outpatient Verifier 07/26/23 08/22/23 Kobi Espinosa MD [address] [facility] [address] [place] [address] Consulting Physician Orthopedic Surgery 03/31/24 documented as of this encounter
--- OUTSIDE RECORDS SUMMARY | 2025-02-12 08:46 | XMS_ITS | Clinical Summary ---
Author Organization [facility] [address] Address [address] [place] [address] Care Team Providers Care Sybase Developer Name Role Phone Shai Shaikh MD Primary Care Provider [phone] Isiah Perdomo MD Unavailable Kobi Espinosa MD Unavailable [phone] Allergies Active Allergy Reactions Criticality Noted Date Comments Adhesive Itching,Redness Low 05/17/2023 Latex Rash Medium 05/23/2023 Morphine Other (See comments),Hallucination s Medium 05/23/2023 Nightmares, ineffective Medications zunuipaa-qqj-AD- lycopen-lutein 0.4-300-250 mg-mcg-mcg tabletIndication s:Vitamin Deficiency Prevention [...] a day as needed for muscle spasms 3 Active atorvastatin (LIPITOR) 80 mg tablet Take 1 tablet (80 mg total) by mouth nightly Active meloxicam (MOBIC) 15 mg tablet Take 1 tablet (15 mg total) by mouth daily 30 tablet 4 03/31/20 25 Active Additional Information Patient not taking.Reported on 12/26/2024 aspirin 81 mg enteric coated tabletIndication s:Deep Vein Thrombosis Prevention Take 1 tablet (81 mg total) by mouth 2 (two) times a day 0 4 Active docusate sodium (COLACE) 100 mg capsuleIndicatio ns:constipation Take 1 capsule (100 mg total) by mouth 2 (two) times a day 60 capsule 4 Active Additional Information Patient not taking.Reported on 12/26/2024 metoprolol XL (TOPROL-XL) 25 mg extended release tablet TAKE 1 TABLET(25 MG) BY MOUTH DAILY 90 tablet 2 5 Active losartan (COZAAR) 25 mg tabletIndication s:Coronary artery disease involving [place] coronary artery of [place] heart without angina pectoris,Primary hypertension Take 1 tablet (25 mg total) by mouth daily 90 tablet 3 5 12/27/19 26 Active clopidogreL (PLAVIX) 75 mg tablet Take 1 tablet (75 mg total) by mouth daily 90 tablet 5 Active nitroglycerin (NITROSTAT) 0.[address] 1 tablet (0.4 mg total) under the tongue every 5 (five) minutes as needed for chest pain May repeat dose q 5 min, up to 3 doses total 25 tablet 3 5 12/29/19 26 Active Active Problems Problem Noted Date Diagnosed Date Hyperlipidemia LDL goal <70 11/02/2023 Presence of stent of bypass graft 08/12/2023 Presence of stent in coronary artery 08/12/2023 Chest pain 07/21/2023 Seizures 05/23/2023 CHF (congestive heart failure) 05/23/2023 GERD (gastroesophageal reflux disease) 4 Asthma 05/23/2023 Osteoarthritis of right hip 05/23/2023 Obesity (BMI 30.0-34.9) 05/23/2023 Primary osteoarthritis of right hip 03/26/2023 Hypertension 11/26/2020 Hyperlipidemia 11/26/2020 Coronary artery disease 11/26/2020 History of seizures 11/26/2020 Delayed emergence from anesthesia Resolved Problems Problem Noted Date Diagnosed Date Resolved Date Other forms of angina pectoris 11/26/2020 01/29/2021 Encounters Date Type Department Care Team Description 12/28/2024 Telephone [facility] Cardiology [address] [place] [address] Isiah Perdomo MD Med Refill 12/26/2024 1:30 PM CDT Office Visit [facility] Medical [facility] Cardiology [address] [place] [address] Isiah Perdomo MD Hyperlipidemia LDL goal <70 (Primary Dx); Coronary artery disease involving [place] coronary artery of [place] heart without angina pectoris; Primary hypertension; Mixed [...] Tobacco: Never Tobacco Cessation:Counseling Given: Not Answered [facility] Utilities Answer Date Recorded In the past 12 months has e [employer], gas, oil, or water [employer] threatened to shut off services in your [...] often do you attend chur ch or jainism services? More than 4 times per year 07/26/2023 Do you belong to any clubs o r organizations such as yazidism groups, unions, fraternal or athletic groups, or [...] place to sleep or slept in a senior living (including now)? No 07/26/2023 Personal Safety Answer Date Recorded Have you ever been in or are you currently in a harmful physical or emotional relationship or is someone making you feel afraid or unsafe? Denies 03/30/2024 Comments No Sex and Gender Information Value Date Recorded Sex Assigned at Not on file Legal Sex Female 9:05 AM THEATRICAL AGENT Gender Identity Not on file Sexual Orientation Not on file Last Filed Vital Signs Vital Sign Reading Time Taken Comments Blood Pressure 152/70 12/26/2024 1:32 PM CDT Pulse 87 12/26/2024 1:32 PM CDT Temperature 36.5 C (97.7 F) 03/31/2024 8:36 AM THEATRICAL AGENT Respiratory Rate 16 03/31/2024 8:36 AM THEATRICAL AGENT Oxygen Saturation 97% 12/26/2024 1:32 PM CDT [...] 03/31/2025 03/31/2024 Medical Devices Implanted Type Area Activity Manager Device Identifier Shelf Expiration Date Model / Serial / Lot Terum[employer] Medical Callie Angio-Seal Vip 6fr Closere Device [id number] - [id number] - [id number] Implanted:Qty: 1 on 07/23/2023 by Chaz Meyer MD at [facility] Collagen Right: Femoral [employer] Callie 01/11/2024 [id number] / [id number] / [id number] Medtronic [employer] X [id number] Resolute [place] 3mm 2.1-2.7fr 22mm 140cm Rapid Exchange Radiopaque - [id number] - [id number] Implanted:Qty: 1 on 01/06/2021 by Liborio Beckham MD PhD at [facility] Stent Medtronic Inc 10/06/2023 [id number] / [id number] / [id number] 2000 Medtronic [employer] X [id number] Resolute [place] 2.5mm 2.1-2.7fr 15mm 140cm Rapid Exchange - [id number] - [id number] Implanted:Qty: 1 on 01/06/2021 by Liborio Beckham MD PhD at [facility] Stent Medtronic Inc 10/09/2023 [id number] / [id number] / [id number] 2000 Medtronic [employer] X [id number] Resolute [place] 4mm 2.1-2.7fr 8mm 140cm Rapid Exchange Radiopaque 1 - [id number] - [id number] Implanted:Qty: 1 on 01/06/2021 by Liborio Beckham MD PhD at [facility] Stent Medtronic Inc 05/29/2022 [id number] / [id number] / [id number] Medtronic Card Vasc Surgery 3.5 X 26mm Terry Pawling Rx Coronary Stent [id number] - [id number] - [id number] Implanted:Qty: 1 on 07/19/2023 by Liborio Beckham MD PhD at [facility] Stent N/A: Saphenous Vein Graft Medtronic Card Vasc Surgery 03/24/2026 [id number] / [id number] 2000 / [id number] 2000 Description:SVG to RCA Medtronic Card Vasc Surgery 2.50 X 15mm Terry Pawling Rx Coronary Stent [id number] - [id number] - [id number] Implanted:Qty: 1 on 07/23/2023 by Liborio Beckham MD PhD at [facility] Stent N/A: Diagnonal Coronary Artery Medtronic Card Vasc Surgery 04/23/2026 [id number] / [id number] 2000 / [id number] 2000 Medtronic Card Vasc Surgery 2.25 X 15mm Terry Pawling Rx Coronary Stent [id number] - [id number] - [id number] Implanted:Qty: 1 on 07/23/2023 by Liborio Beckham MD PhD at [facility] Stent Left: Anterior Descending Cornary Artery Medtronic Card Vasc Surgery 05/27/2026 [id number] / [id number] 2000 [id number] 2000 [facility] [employer] [facility] Angio-Seal Vip 6fr Closere Device [id number] - [id number] - [id number] Implanted:Qty: 1 on 07/19/2023 by Liborio Beckham MD PhD at [facility] Vascular Closure Device Right: Common Femoral Artery [employer] Callie 01/11/2024 [id number] / [id number] / [id number] Daig Callie/[employer] [id number] Angio-Seal Evolution 8fr .038in Guidewire Bypass Tube Suture - [id number] - [id number] Implanted:Qty: 1 on 01/06/2021 [facility]20[facility] [id number] / [id number] / [id number] [employer] Screw Bone Trident Ii L25mm Od6.5mm Low Profile Hexagonal Sterile 3918-7686 - [id number] Implanted:Qty: 1 on 03/30/2024 by Kobi Espinosa MD at [facility] Right: Hip [employer] [id number] 01/24/2029 4321-6582 / / [id number] [employer] Shell Acetabular Trident Ii Tritanium D Od50mm Hip 3 Screw Hole Cluster Sterile 702-04-50d - [id number] Implanted:Qty: 1 on 03/30/2024 by Kobi Espinosa MD at [facility] Right: Hip [employer] [id number] 12/20/2028 702-04-50D / / [id number] [employer] Screw Bone Trident Ii L30mm Od6.5mm Low Profile Hexagonal Sterile 7669-4527 - [id number] Implanted:Qty: 1 on 03/30/2024 by Kobi Espinosa MD at [facility] Right: Hip [employer] [id number] 01/11/2029 3938-9838 / / [id number] [employer] Inc Articul/Apollo 36mm Cementless Hip +5mm 03/25 Taper Head Femoral Latex Free [id number] - [id number] Implanted:Qty: 1 on 03/30/2024 by Kobi Espinosa MD at [facility] Right: Hip [employer] [id number] 10/09/2028 [id number] / / [id number] [employer] Inc Actis Collared Hip 03/25 3 Standard Offset Stem Femoral [id number] - [id number] Implanted:Qty: 1 on 03/30/2024 by Kobi Espinosa MD at [facility] Right: Hip [employer] [id number] 02/09/2034 [id number] / / [id number] [employer] Screw Bone Trident Ii L30mm Od6.5mm Low Profile Hexagonal Sterile 8215-9182 - [id number] Implanted:Qty: 1 on 03/30/2024 by Kobi Espinosa MD at [facility] Right: Hip [employer] [id number] 11/24/2028 7101-8654 / / [id number] [employer] Insert Trident 0deg 36mm 723-00-36d - [id number] Implanted:Qty: 1 on 03/30/2024 by Kobi Espinosa MD at [facility] Right: Hip [employer] [id number] 12/18/2028 723-00-36D / / [id number] Insurance MEDICARE [facility] FEDERAL Member Subscriber Plan / Payer (Ef fective 2015-Present) Name:Kristina Walker Relation to Subscriber:Spouse Name:DOUGLAS WALKER Date of :1947 (Home) Address: [address] [place] [address] Payer ID:[id number] (NAIC) Group ID:[id number] Type:lifeIO Address: [facility] [id number] [place] [address] MEDICARE [facility] FEDERAL Member Subscriber Plan / Payer (Ef fective 2015-Present) Name:Kristina Walker Relation to Subscriber:Spouse Name:DOUGLAS WALKER Date of :1947 (Home) Address: [address] [place] [address] Payer ID:[id number] (NAIC) Group ID:[id number] Type:lifeIO Address: [facility] [id number] [place] [address] MEDICARE [facility] Address: [address] [place] [address] Advance Directives For more information, please contact: [phone] * Full Code (Latest Code Status on File) Date Activated Date Inactivated Comments 03/30/2024 11:43 AM 03/31/2024 5:56 PM * Full Code Date Activated Date Inactivated Comments 07/21/2023 3:59 PM 07/24/2023 4:16 PM * Full Code Date Activated Date Inactivated Comments 07/19/2023 10:32 AM 07/19/2023 8:12 PM * Full Code Date Activated Date Inactivated Comments 01/06/2021 5:44 PM 01/07/2021 12:50 AM Care Teams Sybase Developer Relationship Specialty Start Date End Date Shai Shaikh MD [address] [address] PCP - General Family Medicine 09/11/20 Isiah Perdomo MD [address] [facility] [address] [facility], [facility] [address] [place] [address] Consulting Physician Cardiology 05/17/23 Kobi Espinosa MD [address] [facility] [address] [place] [address] Consulting Physician Orthopedic Surgery 03/31/24
[2025-02-12 09:21] LABS: Hematocrit 43.1 % (37.0-47.0); Hemoglobin 14.3 g/dL (12.0-15.0); Immature Granulocyte Percent A 0.2 % (0-0.5); Lymphocytes Absolute Auto 2.07 K/mm3 (0.9-3.2); Mean Corpuscular HGB Conc 33.2 g/dl (32-36); Mean Corpuscular Hemoglobin 30.6 pg (26-34); Mean Corpuscular Volume 92.1 fl (80-100); Nucleated Red Blood Cells Absolute Auto 0.000 K/mm3 (0.0-0.012); Nucleated Red Blood Cells Perc 0.0 % (0.0-0.2); Platelet Count Result 260 k/mm3 (150-375); Red Blood Count 4.68 M/mm3 (4.2-5.4); White Blood Count 5.0 K/mm3 (4.5-10.0)
[2025-02-12 09:32] LABS: Add Urine Microscopic? YES; Appearance Urine Cloudy (Clear); Glucose Urine UA Negative (Negative); Leukocyte Esterase Ur 2+ LEU/UL (Negative); Nitrate Urine Negative (Negative); Non Pathogenic Casts 0-2; Specific Grav Ur 1.016 (1.001-1.035)
[2025-02-12 09:47] LABS: Alanine Aminotransferase 37 U/L (6-35); Albumin Level 4.4 g/dL (3.5-5.1); Alkaline Phosphatase 87 U/L (38-126); Anion Gap 8 mmol/L (4-12); Aspartate Amino Transferase 37 U/L (14-36); Bilirubin,Total 0.5 mg/dL (0.2-1.3); Blood Urea Nitrogen 14 mg/dL (7-17); Calcium 9.1 mg/dL (8.4-10.2); Carbon Dioxide 26 mmol/L (22-30); Chloride 104 mmol/L (98-107); Cholesterol 147 mg/dL (0-200); Estimated Glomerular Filt Rate > 60; Glucose 104 mg/dL (65-110); HDL Direct 81 mg/dL; Potassium 3.9 mmol/L (3.4-5.0); Sodium 138 mmol/L (137-145); Total Protein 7.5 g/dL (6.3-8.2); Triglycerides 73 mg/dL (<150)
[2025-02-12 10:00] LABS: Hemoglobin A1C 5.3 % (<5.7)
[2025-02-12 10:22] LABS: Thyroid Stimulating Hormone 1.810 uIU/mL (0.465-4.680)
== END 2025-02-12 08:33 | disposition home or self-care (01) ==
LOC: ANHLAB 08:35
PROVIDERS: PCP Family Medicine; Visit Provider Family Medicine
DX: E78.2 Mixed hyperlipidemia (principal); I10 Essential (primary) hypertension; I25.10 Atherosclerotic heart disease of native coronary artery without angina pectoris; R73.01 Impaired fasting glucose
CPT/HCPCS: 36415; 80048; 80061; 80076; 81001; 83036; 84443; 85025